=== PATIENT | male | born 1940 | race Caucasian/White ===

== ENCOUNTER 2023-01-06 08:29 | Emergency (ER) | payer MEDICARE, BC, SELFPAY ==
--- NOTE | ~2023-01-06 | XR_ITS ---
XR chest 2V 01/06/2023 09:19 Indication: Cough for 3 days Procedure: 2 view chest Comparison: No prior studies for comparison. Findings: Heart size normal. No focal air space disease, pulmonary edema, pleural effusion or suspect ed pneumothorax. There is thoracic spondylosis. Impression: 1: No acute cardiopulmonary disease. Reviewed, dictated and finalized at location L. HYSICAL SUPPORT SPECIALIST Impression: 1: No acute cardiopulmonary disease.
[2023-01-06 08:46] VITALS: BP 140/65; PULSE 79; RESP 16; TEMP 36.8; O2SAT 98
--- NOTE | 2023-01-06 09:04 | ED.URI ---
HPI - URI/Sore Throat General Chief Complaint: Upper Respiratory Infection Stated Complaint: cough, cov exposure Time Seen by Provider: 01/06/23 09:04 Source: patient and RN notes reviewed Mode of arrival: ambulatory Limitations: no limitations History of Present Illness HPI Narrative: 82-year-old male presented for complaints of cough and fatigue for 2 days. Also endorses mild headache. Cough is minimally productive, states it sounds harsh. He had exposure to COVID, but states he tested negative at home. He denies cp, shortness of breath, wheezing, nausea, vomiting, diarrhea, fevers or chills. He states he is normally very active but has been sleeping a lot last few days. He has taken Tylenol for symptoms. MD elicited complaint: cough Related Data Home Medications Medication Instructions Recorded Confirmed cholecalciferol (vitamin D3) 25 25 mcg PO DAILY 01/06/23 01/06/23 mcg (1,000 unit) capsule (Vitamin D3) lisinopril 20 mg tablet 20 mg PO DAILY 01/06/23 01/06/23 tamsulosin 0.4 mg capsule 0.4 mg PO DAILY 01/06/23 01/06/23 Allergies Allergy/AdvReac Type Severity Reaction Status Date / Time No Known Allergies Allergy Unverified 01/06/23 08:43 Review of Systems Review of Systems: CONSTITUTIONAL: Endorses malaise, denies chills, sweats, fever EYES: Denies visual changes, redness, or discharge ENT: Denies rhinorrhea, congestion, sinus pain, otalgia, sore throat CARDIOVASCULAR: Denies chest pain, palpitations, edema RESPIRATORY: Reports cough Denies dyspnea GASTROINTESTINAL: Denies abdominal pain, nausea, vomiting, diarrhea SKIN: Denies rash or itching MUSCULOSKELETAL: Denies myalgia [facility] Past Medical History Medical History (Updated 01/06/23 @ 10:02 by Lucila Fagan, STRUCTURAL STEEL FITTER) Hypertension Exam Narrative: GENERAL: mildly ill-appearing, nontoxic no acute distress. HEAD: Normocephalic EYES: PERRLA, conjunctivae clear ENT: Mucous membranes moist. TMs pearly leslie with dull light reflex bilaterally; no tragal tenderness. Oropharynx erythematous without lesions or exudate NECK: Supple. No lymphadenopathy CHEST: Clear to auscultation, breath sounds equal. No wheezing, rhonchi, rales, or stridor. No respiratory distress, speaks in full sentences. HEART: Regular rate and rhythm. No murmur heard. SKIN: Warm, dry, no rash. NEURO: Alert and oriented x3. PSYCH: Normal mood and affect Course Course Emergency Course: Patient is aware of diagnosis, understands and agrees to treatment plan. Anticipatory guidance given. Patient agrees to follow-up as directed and is aware of reasons to seek care at the emergency department. Portions of this record may have been created with voice recognition software Level of Care: Express Care Visit Vital Signs Vital signs: Vital Signs Temperature 98.3 F 01/06/23 08:46 Pulse Rate 79 01/06/23 08:46 Respiratory Rate 16 01/06/23 08:46 Blood Pressure 140/65 01/06/23 08:46 Pulse Oximetry 98 01/06/23 08:46 Temperature 98.3 F 01/06/23 08:46 Pulse Rate 79 01/06/23 08:46 Respiratory Rate 16 01/06/23 08:46 Blood Pressure 140/65 01/06/23 08:46 Pulse Oximetry 98 01/06/23 08:46 reviewed MDM - URI/Sore Throat MDM Narrative Medical decision making narrative: COVID negative. Results of chest x-ray reviewed with patient. Advised supportive measures and signs/symptoms to go to the ER. Pt is appropriate for outpt treatment and f/u. Differential Diagnosis Differential diagnosis: Likely upper respiratory infection, sinusitis, viral infection and bronchitis Lab Data Labs: Lab Results 01/06/23 Range/Units 08:45 POC SARS CoV-2 Ag Negative (Negative) Discharge Plan Discharge Clinical Impression: Cough Patient Disposition: Home, Self-Care Condition: Stable Instructions: Antibiotic Form, Acute Cough (ED) Additional Instructions: Take medication as directed over the counter Cough syrup may cause drowsiness;
== END 2023-01-06 09:48 | disposition home or self-care (01) ==
PROVIDERS: Emergency Provider Nurse Practitioner Family; PCP Internal Medicine
DX: R05.9 Cough, unspecified (principal); Z20.822 Contact with and (suspected) exposure to COVID-19; I10 Essential (primary) hypertension
CPT/HCPCS: 71046; 87426; 99203; C9803; G0463

== ENCOUNTER 2024-03-25 08:41 | Emergency (ER) | payer MEDICARE, BC, SELFPAY ==
--- NOTE | ~2024-03-25 | XR_ITS ---
XR chest 2V DATE: 03/25/2024 09:16 INDICATION: Right chest pain, overnight onset TECHNIQUE: 2 views COMPARISON: January 06, 2023 2 view chest FINDINGS: Normal heart size. Aortic arch calcification. No hilar or mediastinal enlargement. Mild bibasilar atelectasis. The lungs otherwise appear clear. Degenerative spurring of the thoracic spine. Osteopenia. IMPRESSION: Mild bibasilar atelectasis Reviewed, dictated and finalized at location A. IMPRESSION: Mild bibasilar atelectasis
[2024-03-25 08:55] VITALS: BP 148/65; PULSE 91; RESP 16; TEMP 36.9; O2SAT 95
--- NOTE | 2024-03-25 09:02 | ED.ABDPAIN ---
HPI - Abdominal Pain General Chief Complaint: Abdominal Pain Stated Complaint: Right Side Pain Source: patient Mode of arrival: ambulatory Limitations: no limitations History of Present Illness HPI narrative: 83-year-old male presented for complaint of right abdominal and right chest pain. Onset 0 200. States it woke him from his sleep. Pain is described as sharp and constant, worse when breathing. Endorses associated nausea. Guarding abdomen. Denies cough, shortness of breath, wheezing, palpitations, vomiting, diarrhea or lethargy. at bedside says he has not ?felt well in a while. ? Endorses generalized unwell feeling without known cause. Plans to see cardiology in April. Hx appy. Related Data Home Medications Medication Instructions Recorded Confirmed cholecalciferol (vitamin D3) 25 25 mcg PO DAILY 01/06/23 03/25/24 mcg (1,000 unit) capsule (Vitamin D3) lisinopril 20 mg tablet 20 mg PO DAILY 01/06/23 03/25/24 tamsulosin 0.4 mg capsule 0.4 mg PO DAILY 01/06/23 03/25/24 Allergies Allergy/AdvReac Type Severity Reaction Status Date / Time No Known Allergies Allergy Unverified 03/25/24 08:44 Review of Systems Review of Systems: CONSTITUTIONAL: Reports malaise Denies body aches, fever, chills, or sweats. EYES: Denies visual changes, redness, or discharge. ENT: Denies rhinorrhea, congestion, sore throat, or otalgia. CARDIOVASCULAR: Reports right chest pain Denies palpitations, or edema. RESPIRATORY: Denies cough or dyspnea. GASTROINTESTINAL: Reports abdominal pain, nausea, Denies vomiting, or diarrhea, hematochezia/melena. GENITOURINARY: Denies dysuria or hematuria. SKIN: Denies rash, itching, or wounds. MUSCULOSKELETAL: Denies back pain, joint pain, or myalgia. NEUROLOGIC: Denies headache, numbness, tingling, or weakness. All systems reviewed & are unremarkable except as noted in HPI and below PMFSH Past Medical History Medical History Hypertension Comments At time of signature, I have reviewed and agree with nursing past medical, surgical, social and family history unless otherwise noted. Please see nursing chart for further information. There is no relevant family history pertinent to the presenting complaint Exam Narrative: GENERAL: Mildly ill-appearing, and in no acute distress. EYES: EOMI. No redness or drainage. Conjunctivae normal. ENT: Mucous membranes pink and moist. No rhinorrhea. NECK: Normal AROM. Supple. CHEST: No respiratory distress. Clear to auscultation. HEART: Regular rate and rhythm. No murmur appreciated. Normal peripheral pulses. ABDOMEN: Soft, nontender, nondistended, normal active bowel sounds. Guarding abdomen, cannot tolerate laying back. MUSCULOSKELETAL: No bony tenderness. Right chest/abd pain is not reproducible. EXTREMITIES: Normal range of motion. No edema. SKIN: Warm, dry, no rash. Capillary refill normal. Normal skin turgor. NEURO: No focal deficits. Alert and oriented x3. Gait steady. PSYCH: Normal affect. Course Course Emergency Course: Patient is aware of diagnosis, understands and agrees to treatment plan. Anticipatory guidance given. Patient agrees to follow-up as directed and is aware of reasons to seek care at the emergency department. Portions of this record may have been created with voice recognition software Level of Care: Express Care Visit Vital Signs Vital signs: Vital Signs Temperature 98.5 F 03/25/24 08:55 Pulse Rate 91 03/25/24 08:55 Respiratory Rate 16 03/25/24 08:55 Blood Pressure 148/65 H 03/25/24 08:55 Pulse Oximetry 95 03/25/24 08:55 Temperature 98.5 F 03/25/24 08:55 Pulse Rate 91 03/25/24 08:55 Respiratory Rate 16 03/25/24 08:55 Blood Pressure 148/65 H 03/25/24 08:55 Pulse Oximetry 95 03/25/24 08:55 Transfer Transfered to: [facility] Transportation: Other (Private vehicle) Transfer rationale: Pt is a
== END 2024-03-25 09:48 | disposition short-term general hospital (02) ==
PROVIDERS: Emergency Provider Nurse Practitioner Family; PCP Internal Medicine
DX: R10.9 Unspecified abdominal pain (principal); I10 Essential (primary) hypertension
CPT/HCPCS: 71046; 99213; G0463

== ENCOUNTER 2024-04-27 12:49 | Emergency (ER) | payer MEDICARE, BC, SELFPAY ==
--- NOTE | ~2024-04-27 | XR_ITS ---
Left wrist Technique: PA, oblique, lateral, and ulnar deviation views were obtained. Clinical History: Pain Findings: No acute fracture seen. There is mild widening of the scapholunate interval. There is sever e degenerative change of the first CMC joint. Soft tissues are unremarkable. Impression: Mild widening of the scapholunate interval is compatible with underlying scapholunate ligament tear. 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 Reviewed, dictated and finalized at location M. Impression: Mild widening of the scapholunate interval is compatible with underlying scapho lunate ligament tear. 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
[2024-04-27 13:01] VITALS: BP 139/67; PULSE 72; RESP 16; TEMP 37.1; O2SAT 97
--- NOTE | 2024-04-27 13:06 | ED.UPPEXIN ---
HPI - Extremity Injury (Upper) General Chief Complaint: Extremity Injury, Upper Stated Complaint: Injured Left Arm Time Seen by Provider: 04/27/24 12:51 Source: patient Mode of arrival: ambulatory Limitations: no limitations History of Present Illness HPI narrative: Child's is an 83-year-old male patient presenting to the clinic today with complaints of left forearm/wrist injury. He reports that he fell yesterday and caught himself with his left arm. Has bruising and mild swelling to the volar aspect of the left forearm and wrist. Having pain with movement of the wrist. Related Data Home Medications Medication Instructions Recorded Confirmed cholecalciferol (vitamin D3) 25 25 mcg PO DAILY 01/06/23 03/25/24 mcg (1,000 unit) capsule (Vitamin D3) lisinopril 20 mg tablet 20 mg PO DAILY 01/06/23 03/25/24 tamsulosin 0.4 mg capsule 0.4 mg PO DAILY 01/06/23 03/25/24 amlodipine 10 mg tablet mg 04/27/24 apixaban 5 mg tablet (Eliquis) mg 04/27/24 Allergies Allergy/AdvReac Type Severity Reaction Status Date / Time No Known Allergies Allergy Unverified 03/25/24 08:44 Review of Systems Review of Systems: Pertinent positives per HPI. Patient denies any fever, chills, rash, headache, visual changes, dizziness, cough, runny nose, sore throat, shortness of breath, chest pain, palpitations, nausea, vomiting, diarrhea, constipation, abdominal pain, or any urinary issues. PENDING SALE TO [facility] Past Medical History Medical History Hypertension Comments At the time of my signature, I reviewed and agree with the nursing past medical, surgical, social, and family history. There is no relevant family history pertinent to the patient complaint. Exam Narrative: General: Well-developed, well nourished, in no apparent distress Head: Normocephalic, atraumatic. Cardio: Regular rate and rhythm, s1 and s2 normal, no murmur appreciated. Resp: Clear to auscultation bilaterally, no rhonchi, rales, wheezing or rubs. Musculoskeletal: No deformity, bruising and swelling noted to the volar aspect of the left wrist and forearm, tenderness to palpation over this area, pain with gripping to the left hand in the wrist and forearm, pain with pronation and supination, pain with flexion and extension of the left wrist, limited range of motion due to pain, muscle strength strong and equal, peripheral pulse strong, no edema, no cyanosis, normal gait and station Course Course Emergency Course: Portions of this record may have been created with voice recognition software. Level of Care: Express Care Visit Vital Signs Vital signs: Vital Signs Temperature 37.1 C 04/27/24 13:01 Pulse Rate 72 04/27/24 13:01 Respiratory Rate 16 04/27/24 13:01 Blood Pressure 139/67 04/27/24 13:01 Pulse Oximetry 97 04/27/24 13:01 Temperature 37.1 C 04/27/24 13:01 Pulse Rate 72 04/27/24 13:01 Respiratory Rate 16 04/27/24 13:01 Blood Pressure 139/67 04/27/24 13:01 Pulse Oximetry 97 04/27/24 13:01 Vital signs reviewed MDM - Extremity Injury (Upper) MDM Narrative Medical decision making narrative: At the time of visit patient is resting comfortably on the exam table. Patient appears to be nontoxic. Diagnostics: X-ray left wrist was performed-No sign of fracture-possible ligament tear of the scaphoid lunate Plan: I suspect patient has contusion, left wrist sprain, and possible injury to the ligament of the left scaphoid lunate.. Supportive measures were discussed with the patient and they voiced understanding discharge instructions and agrees to treatment plan. Return precautions reviewed Differential Diagnosis Differential diagnosis: Likely sprain and strain of wrist, fracture of wrist, fracture of hand and other Imaging Data Radiologist's impression: ITS Impressions Wrist X-Ray 04/27/24 13:25 Impression: Mild widening of the scapholunate interval is co
== END 2024-04-27 14:03 | disposition home or self-care (01) ==
PROVIDERS: Emergency Provider Nurse Practitioner Family; PCP Internal Medicine
DX: S63.502A Unspecified sprain of left wrist, initial encounter (principal); W19.XXXA Unspecified fall, initial encounter; S50.12XA Contusion of left forearm, initial encounter; S63.592A Other specified sprain of left wrist, initial encounter; I10 Essential (primary) hypertension
CPT/HCPCS: 29125; 73110; 99213; A4565; G0463

== ENCOUNTER 2024-11-22 11:37 | Emergency (ER) | payer MEDICARE, BC, SELFPAY ==
--- NOTE | ~2024-11-22 | XR_ITS ---
EXAMINATION: XR shoulder RT min 2V DATE: 11/22/2024 12:23 INDICATION: Right shoulder pain. Fall. TECHNIQUE: 5 views of right shoulder were obtained. COMPARISON: None. FINDINGS: Alignment is normal. No fracture. There is mild osteoarthritis of glenohumeral joint and se tomy osteoarthritis of acromioclavicular joint. A calcified right lung nodule and calcified right hil ar lymph nodes are consistent with old granulomatous disease. IMPRESSION: 1. Polyarticular osteoarthritis. Reviewed, dictated and finalized at location A. WORKER
--- NOTE | 2024-11-22 11:58 | ED_ITS ---
HPI - Fall General Chief Complaint: Extremity Injury, Upper Stated Complaint: Fall Time Seen by Provider: 11/22/24 12:25 Source: patient, RN notes reviewed and old records reviewed Mode of arrival: ambulatory Limitations: no limitations History of Present Illness HPI Narrative: patient presents accompanied by his and his daughter. Patient reports that he tripped while getting the mail yesterday, landed on his right side. He has some residual right-sided shoulder pain today. He has been taking Tylenol for his symptoms with good relief. He retains full range of motion to the affected extremity. He denies other injury and trauma, including head trauma. Voices no other concerns or complaints at this time Related Data Home Medications ?Medication ?Instructions ?Recorded ?Confirmed ?Last Taken ?Type cholecalciferol (vitamin D3) 25 25 mcg PO DAILY 01/06/23 11/22/24 Unknown History mcg (1,000 unit) capsule (Vitamin D3) amlodipine 10 mg tablet mg 04/27/24 Unknown History apixaban 5 mg tablet (Eliquis) mg 04/27/24 Unknown History carvedilol 6.25 mg tablet mg 11/22/24 Unknown History multivitamin 11/22/24 Unknown History Allergies Allergy/AdvReac Type Severity Reaction Status Date / Time No Known Allergies Allergy Verified 11/22/24 12:10 Review of Systems Review of Systems: All systems reviewed & are unremarkable except as noted in HPI and below Constitutional: Constitutional: Reports no additional constitutional complaints ENT: Reports system reviewed and no additional complaints, except as documented Cardiovascular: Cardiovascular: Reports no additional cardiovascular complaints Respiratory: Respiratory: Reports no additional respiratory complaints Gastrointestinal: Gastrointestinal: Reports no additional gastrointestinal complaints Musculoskeletal: Musculoskeletal: Reports no additional musculoskeletal complaints and Reports as per HPI [facility] Past Medical History Medical History Hypertension Social History Social History Smoking status: Never smoker Comments At the time of my signature, I reviewed and agree with the nursing past medical, surgical, social, and family history. There is no relevant family history pertinent to the patient complaint. Exam Const: General: cooperative, no acute distress, alert and awake Or ientation/consciousness: oriented to person, oriented to place and oriented to time HENMT: Head: normal to inspection Resp: Effort & Inspection: normal respiratory effort and able to speak in complete sentences Auscultation: clear to auscultation bilaterally, no crackles, no rales, no rhonchi and no wheezes Cardio: Palpation: normal PMI Rate: regular rate Rhythm: regular rhythm Heart sounds: S1 normal heart sound present and S2 normal heart sound present Neuro: General: oriented to person, oriented to place and oriented to time Cranial nerves: Yes CN's II-XII intact bilaterally Extrem: Right upper extremity: normal to inspection, full ROM, normal capillary refill and shoulder/upper arm normal to inspection, axillary nerve sensory function normal and normal ROM; no swelling, no ecchymosis, no crepitus and no deformity Psych: Appearance: grossly normal Thought process: Normal thought process present Insight: Good insight present (Psych) Judgement: Good judgement present (Psych) Course Course Level of Care: Express Care Visit Vital Signs Vital signs: Reviewed MDM - Fall MDM Narrative Medical decision making narrative: reassuring physical exam. X-ray without acute findings. Patient advised to treat symptomatically, follow up with primary care provider. Emergency department for new or worse symptoms. Discharge instructions reviewed with patient, as well as provided in writing per nursing staff. The instructions also include specific and strict return/GO TO THE ER as well as f/u information. All questions have been answered, and the patient deny any further questions with discharge and discharge plan. Some parts of this dictation were generated by voice recognition software and may contain typographical and/or grammatical inaccuracies. Differential Diagnosis Differential diagnosis: Likely dislocation of shoulder region and other (Clavicle fracture, shoulder sprain and strain) Medical Records Attestation: I reviewed the patient's medical records. Imaging Data Attestation: I personally reviewed and interpreted this imaging study as follows: My impression: No acute finding Radiologist's impression: Express Care [facility] [place] [address] XRay Report Signed Patient: Thomas Peralta : 1940 MR#: [id number] Age: 83 Acct:[id number] Loc: [id number] ADM Date: 11/22/24Attending Dr: Ordering Physician: Alanis Gonzalez FNP Date of Service: 01/09/25 Procedure(s): XR shoulder RT min 2V Accession Number(s): [id number] cc: Alanis Gonzalez, [place]; Rhona, Elian Kwon MD~ EXAMINATION: XR shoulder RT min 2V DATE: 11/22/2024 12:23 INDICATION: Right shoulder pain. Fall. TECHNIQUE: 5 views of right shoulder were obtained. COMPARISON: None. FINDINGS: Alignment is normal. No fracture. There is mild osteoarthritis of glenohumeral joint and severe osteoarthritis of acromioclavicular joint. A calcified right lung nodule and calcified right hilar lymph nodes are consistent with old granulomatous disease. IMPRESSION: 1. Polyarticular osteoarthritis. Reviewed, dictated and finalized at location A. DRIER OPERATOR Please be advised this is a medical document. It is intended for [id number] communication. It is written in medical language and may contain unfamiliar abbreviations or verbiage. Medical documents are intended to carry relevant information, facts as evident, and the clinical opinion of the practitioner at the time of the encounter. This report may have been done utilizing a voice recognition system. Attempts have been made to correct errors. However, there may be uncorrected grammatical, spelling, and recognition errors present. The file time of this note does not necessarily represent the time the patient was seen. Dictated By: Cristian Hedrick MD 11/22/24 1229 Signed By: <Electronically signed by Cristian Hedrick MD in OV> 11/22/24 1229 Discharge Plan Discharge Clinical Impression: Acute shoulder pain Patient Disposition: Home, Self-Care Condition: Stable Instructions: Antibiotic Form, Musculoskeletal Pain (ED) Additional Instructions: take Tylenol per package instructions as needed for pain. Follow with primary care provider. Emergency department for new or worse symptoms Patient Language: Indian Prescriptions: No Action amlodipine 10 mg tablet Eliquis 5 mg tablet cholecalciferol (vitamin D3) [Vitamin D3] 25 mcg (1,000 unit) Capsule 25 mcg PO DAILY Follow-up/Referrals: Rhona,Elian Kwon MD [Primary Care Provider] - 1 Week Time of Disposition: 12:37
[2024-11-22 12:04] VITALS: BP 130/66; PULSE 60; RESP 16; TEMP 36.6; O2SAT 97
== END 2024-11-22 12:45 | disposition home or self-care (01) ==
PROVIDERS: Emergency Provider Nurse Practitioner Family; PCP Internal Medicine
DX: M25.511 Pain in right shoulder (principal); I10 Essential (primary) hypertension
CPT/HCPCS: 73030; 99213; G0463

== ENCOUNTER 2025-04-23 09:22 | Emergency (ER) | payer MEDICARE, BC, SELFPAY ==
--- NOTE | 2025-04-23 09:33 | ED_ITS ---
HPI - Female Genitourinary General Chief complaint: Urogenital-Male Stated complaint: Uti Symptoms Source: patient and RN notes reviewed Mode of arrival: ambulatory Limitations: no limitations History of Present Illness MD elicited complaint: UTI Related Data Home Medications ?Medication ?Instructions ?Recorded ?Confirmed ?Last Taken ?Type cholecalciferol (vitamin D3) 25 25 mcg PO DAILY 01/06/23 11/22/24 Unknown History mcg (1,000 unit) capsule (Vitamin D3) amlodipine 10 mg tablet mg 04/27/24 Unknown History apixaban 5 mg tablet (Eliquis) mg 04/27/24 Unknown History carvedilol 6.25 mg tablet mg 11/22/24 Unknown History multivitamin 11/22/24 Unknown History donepezil 5 mg tablet mg 04/23/25 Unknown History levothyroxine 25 mcg tablet mcg 04/23/25 Unknown History rivastigmine 4.6 mg/24 hour 04/23/25 Unknown History transdermal patch tramadol 50 mg tablet mg 04/23/25 Unknown History Allergies Allergy/AdvReac Type Severity Reaction Status Date / Time No Known Allergies Allergy Verified 04/23/25 09:30 Review of Systems Review of Systems: CONSTITUTIONAL: Denies malaise, chills, sweats, or fever. CARDIOVASCULAR: Denies chest pain, palpitations, or edema. RESPIRATORY: Denies cough or dyspnea. GASTROINTESTINAL: Denies abdominal pain, nausea, vomiting, diarrhea GENITOURINARY: Reports dysuria, frequency, urgency, suprapubic pressure. Denies flank pain or hematuria. SKIN: Denies rash or itching. MUSCULOSKELETAL: Denies back pain or myalgia. All systems reviewed & are unremarkable except as noted in HPI and below PMFSH Past Medical History Medical History Hypertension Social History Social History Smoking status: Never smoker Comments At time of signature, agree with nursing past medical, surgical, social and family history. There is no relevant family history pertinent to the presenting complaint Exam Narrative: GENERAL: Well-appearing, well-nourished, and in no acute distress. HEAD: Normocephalic. EYES: PERRLA, conjunctivae clear. NECK: Supple. No lymphadenopathy CHEST: Clear to auscultation. No respiratory distress. HEART: Regular rate and rhythm. ABDOMEN: Soft, nontender upon palpation, nondistended, normal active bowel soun ds, no palpable or pulsatile masses, no guarding. No CVA tenderness SKIN: Warm, dry, no rash. NEURO: Alert and oriented x3. PSYCH: Normal mood and affect Course Course Emergency Course: Patient is aware of diagnosis, understands and agrees to treatment plan. Anticipatory guidance given. Patient agrees to follow-up as directed and is aware of reasons to seek care at the emergency department. Portions of this record may have been created with voice recognition software Level of Care: Express Care Visit Vital Signs Vital signs: Reviewed. MDM - Female Genitourinary MDM Narrative Medical decision making narrative: Exam findings and UA show no acute concerns or changes; patient is non-toxic appearing and is in no distress. Patient is appropriate for outpatient treatment and follow-up. Differential Diagnosis Differential diagnosis: Likely urinary tract infection and cystitis Critical Care Time Critical Care Time Critical Care Time: No Discharge Plan Discharge Patient Language: Libyan Prescriptions: No Action amlodipine 10 mg tablet Eliquis 5 mg tablet donepezil 5 mg tablet tramadol 50 mg tablet levothyroxine 25 mcg tablet rivastigmine 4.6 mg/24 hour patch 24 hour cholecalciferol (vitamin D3) [Vitamin D3] 25 mcg (1,000 unit) Capsule 25 mcg PO DAILY carvedilol 6.25 mg tablet multivitamin Follow-up/Referrals: PHYSICIAN,NET DEVELOPER CONTRACT [Primary Care Provider] -
[2025-04-23 09:35] VITALS: BP 121/71; PULSE 63; RESP 16; TEMP 36.6; O2SAT 97
--- NOTE | 2025-04-23 09:45 | ED_ITS ---
HPI - Male Genitourinary General Chief complaint: Urogenital-Male Stated complaint: Uti Symptoms Time Seen by Provider: 04/23/25 09:45 Source: patient and RN notes reviewed Mode of arrival: ambulatory Limitations: no limitations History of Present Illness HPI Narrative: 84 year old male presents with concern for incontinence, foul-smelling urine, and slightly increased confusion. His neurologist recommended he get his urine checked. His reports he has been complaining of an upset stomach for couple of days and low back pain. He denies any vomiting. Denies chills, fever, hematuria, abdominal pain MD Complaint: other (foul smelling urine) Related Data Home Medications ?Medication ?Instructions ?Recorded ?Confirmed ?Last Taken ?Type cholecalciferol (vitamin D3) 25 25 mcg PO DAILY 01/06/23 11/22/24 Unknown History mcg (1,000 unit) capsule (Vitamin D3) amlodipine 10 mg tablet mg 04/27/24 Unknown History apixaban 5 mg tablet (Eliquis) mg 04/27/24 Unknown History carvedilol 6.25 mg tablet mg 11/22/24 Unknown History multivitamin 11/22/24 Unknown History donepezil 5 mg tablet mg 04/23/25 Unknown History levothyroxine 25 mcg tablet mcg 04/23/25 Unknown History rivastigmine 4.6 mg/24 hour 04/23/25 Unknown History transdermal patch tramadol 50 mg tablet mg 04/23/25 Unknown History Allergies Allergy/AdvReac Type Severity Reaction Status Date / Time No Known Allergies Allergy Verified 04/23/25 09:30 Review of Systems Review of Systems: CONSTITUTIONAL: Denies malaise, chills, sweats, or fever. CARDIOVASCULAR: Denies chest pain, palpitations, or edema. RESPIRATORY: Denies cough or dyspnea. GASTROINTESTINAL: Denies abdominal pain, vomiting, diarrhea. Reports nausea GENITOURINARY: Reports foul-smelling urine, incontinence. Denies dysuria, frequency, urgency, suprapubic pressure. Denies flank pain or hematuria. SKIN: Denies rash or itching. MUSCULOSKELETAL: Reports left back pain. Denies myalgia. NEURO: Reports increased confusion All systems reviewed & are unremarkable except as noted in HPI and below PMFSH Past Medical History Medical History Hypertension Social History Social History Smoking status: Never smoker Comments At time of signature, agree with nursing past medical, surgical, social and family history. There is no relevant family history pertinent to the presenting complaint Exam Narrative: GENERAL: Well-appearing, well-nourished, and in no acute distress. HEAD: Normocephalic. EYES: PERRLA, conjunctivae clear. NECK: Supple. No lymphadenopathy CHEST: Clear to auscultation. No respiratory distress. HEART: Regular rate and rhythm. ABDOMEN: Soft, left lower quadrant tenderness, nondistended, normal active bowel sounds, no palpable or pulsatile masses, no guarding. No CVA tenderness SKIN: Warm, dry, no rash. NEURO: Alert and oriented x3. PSYCH: Normal mood and affect Course Course Emergency Course: Based on patient's symptoms, will treat presumptively pending culture Patient is aware of diagnosis, understands and agrees to treatment plan. An ticipatory guidance given. Patient agrees to follow-up as directed and is aware of reasons to seek care at the emergency department. Portions of this record may have been created with voice recognition software Level of Care: Express Care Visit Vital Signs Vital signs: Vital Signs Temperature 98 F 04/23/25 09:35 Pulse Rate 63 04/23/25 09:35 Respiratory Rate 16 04/23/25 09:35 Blood Pressure 121/71 04/23/25 09:35 Pulse Oximetry 97 04/23/25 09:35 Oxygen Delivery Room Air 04/23/25 09:35 Temperature 98 F 04/23/25 09:35 Pulse Rate 63 04/23/25 09:35 Respiratory Rate 16 04/23/25 09:35 Blood Pressure 121/71 04/23/25 09:35 Pulse Oximetry 97 04/23/25 09:35 Oxygen Delivery Room Air 04/23/25 09:35 Reviewed. MDM - Male Genitourinary MDM Narrative Medical decision making narrative: I evaluated this patient in the express care. History is obtained from patient who is an independent historian and physical exam was performed.? Available medical records were reviewed. ? Exam findings and relevant testing show no acute concerns or changes; patient is non-toxic appearing and is in no distress. ? Differential diagnosis and treatment plan were discussed with the patient. Patient agrees with discussion and after shared medical decision making agrees with plan of care. All questions were answered to the patient's satisfaction. Patient is appropriate for outpatient treatment and follow-up. Critical Care Time Critical Care Time Critical Care Time: No Discharge Plan Discharge Clinical Impression: Symptoms of urinary tract infection Patient Disposition: Home Condition: Stable Instructions: Antibiotic Form, Urinary Tract Infection in Women (ED) Additional Instructions: We will send a urine culture to the lab; if the culture identifies an organism that the prescribed antibiotic will not treat, you will receive a phone call from an urgent care staff member and an appropriate antibiotic will be prescribed. -Also recommend: increase water intake. -Follow-up with your primary care provider or urologist for further evaluation. Seek ER visit if condition worsens with high fever, nausea, vomiting and severe back pain. Patient Language: Georgian Prescriptions: New amoxicillin-pot clavulanate [Augmentin] 500-125 mg tablet 1 tablet PO Q12H 10 Days Qty: 20 0RF No Action amlodipine 10 mg tablet Eliquis 5 mg tablet donepezil 5 mg tablet tramadol 50 mg tablet levothyroxine 25 mcg tablet rivastigmine 4.6 mg/24 hour patch 24 hour cholecalciferol (vitamin D3) [Vitamin D3] 25 mcg (1,000 unit) Capsule 25 mcg PO DAILY carvedilol 6.25 mg tablet multivitamin Follow-up/Referrals: PHYSICIAN,PRINTING SERVICES COORDINATOR [Primary Care Provider] - Time of Disposition: 10:03
[2025-04-23 09:46] LABS: EDUAAPPEAR Clear; EDUABILI Negative (Negative); EDUABLOOD Negative (Negative); EDUACOLOR1 Yellow; EDUAGLUCOSE Negative (Negative); EDUAKETONE Negative (Negative); EDUALEUKO Negative (Negative); EDUANITRATE Negative (Negative); EDUAPROTEIN 2+ (Negative); EDUAUROBILI 0.2
== END 2025-04-23 10:07 | disposition home or self-care (01) ==
PROVIDERS: Emergency Provider Nurse Practitioner
DX: R10.32 Left lower quadrant pain (principal); R82.998 Other abnormal findings in urine; I10 Essential (primary) hypertension
CPT/HCPCS: 81003; 87086; 99213; G0463